=== PATIENT | male | born 1940 | race Caucasian/White ===

== ENCOUNTER 2016-10-21 15:03 | Emergency (ER) | payer MEDICARE, BC ==
[~2016-10-21] VITALS: Ht 167.6 cm; Wt 90.7 kg
[~2016-10-21 15:03] MED LIST: ALLO300T2 PO; AMLO5TAB2 PO; ASPI-612 PO; ATOR40TA PO; Acetaminophen PO; CALC0.253 PO; CARV3.122 PO; CHOL100043 PO; CLON0.1T PO; METF500T4 PO; OMEG500C3 PO; PANT40TA2 PO; PANT40TA4 PO
[2016-10-21] MEDS ORDERED: NITR0.4T SL (15:24)
[2016-10-21 15:48] LABS: *BILIRUBIN,URIN NEGATIVE (NEGATIVE); *BLOOD, URINE Trace-intact (NEGATIVE); *CLARITY,URINE SLIGHTLY CLOUDY (CLEAR); *COLOR,URINE YELLOW (YELLOW); *KETONES,URINE NEGATIVE (NEGATIVE); *PROTEIN,URINE NEGATIVE (NEGATIVE); *UROBILINOGEN,URINE 0.2 E.U./dl (NORMAL); LEUKOCYTE ESTERASE ,URINE 3+ (NEGATIVE); NITRITE, URINE NEGATIVE (NEGATIVE); PH,URINE 7.5 (5.0-8.0); UGLUCOSE NEGATIVE (NEGATIVE)
[2016-10-21 15:53] LABS: RBC,URINE 0-3 /HPF (0-3)
[2016-10-21 15:54] LABS: BACTERIA,URINE FEW /HPF (NONE SEEN); SQUAMOUS EPITHELIAL CELL,UR FEW /HPF (NONE SEEN); WBC,URINE 50-80 /HPF (0-3)
[2016-10-21] MEDS ORDERED: ACETAMINOPHEN 325 MG TABLET PO ONE (16:30)
[2016-10-21] MEDS ORDERED: IBUPROFEN 200 MG TABLET PO ONE (16:30)
--- NOTE | 2016-10-21 16:32 | NUR ---
Patient discharged to home in stable conditon. er handed the d/c paper work to the pt and . pt walks in steady gait accompanied by .
[2016-10-21] MEDS ORDERED: ACETAMINOPHEN ES 500 MG TABLET ONE (16:39)
[2016-10-21] MEDS ORDERED: IBUPROFEN 600 MG TABLET ONE (16:40)
== END 2016-10-21 16:32 | disposition home or self-care (01) ==
LOC: ER 15:03
DX: N39.0 Urinary tract infection, site not specified (principal); I25.10 Atherosclerotic heart disease of native coronary artery without angina pectoris; I10 Essential (primary) hypertension; E11.9 Type 2 diabetes mellitus without complications; M10.9 Gout, unspecified; E78.5 Hyperlipidemia, unspecified; C64.9 Malignant neoplasm of unspecified kidney, except renal pelvis; Z79.82 Long term (current) use of aspirin; Z88.2 Allergy status to sulfonamides; Z95.5 Presence of coronary angioplasty implant and graft
CPT/HCPCS: 81001; 87086; 99284; A4663; 87077

== ENCOUNTER 2017-11-21 21:50 | Emergency (ER) | payer MEDICARE, BC, MEDICAID ==
[~2017-11-21] VITALS: Ht 167.6 cm; Wt 90.7 kg
[~2017-11-21 21:50] MED LIST changes: -CALC0.253 PO; -METF500T4 PO; +METF500T6 PO; +NITR0.4T SL; -PANT40TA2 PO
[2017-11-21] MEDS ORDERED: hydrALAZINE HCL 20 MG/1 ML VIAL IV ONE (22:15)
[2017-11-21] MEDS ORDERED: NITROGLYCERIN 0.4 MG/TAB BOTTLE SL ONE ×2 (22:15)
--- NOTE | 2017-11-21 22:15 | NUR ---
Xray at bedside
[2017-11-21 22:19] LABS: BASOPHILS # (AUTO) 0.1 K/uL (0.0-8.0); BASOPHILS % (AUTO) 0.8 % (0.0-2.0); EOSINOPHILS # (AUTO) 0.2 K/uL (0.0-0.7); EOSINOPHILS % (AUTO) 2.7 % (0.0-7.0); HEMATOCRIT 37.1 % (36.7-47.1); HEMOGLOBIN 12.5 g/dL (12.5-16.3); LYMPHOCYTES # (AUTO) 1.9 K/uL (20.0-40.0); LYMPHOCYTES % (AUTO) 25.5 % (20.5-51.5); MEAN CORPUSCULAR HEMOGLOBIN 31.1 uug (23.8-33.4); MEAN CORPUSCULAR HGB CONC 34 g/dL (32.5-36.3); MEAN CORPUSCULAR VOLUME 92.6 fL (73.0-96.2); MONOCYTES # (AUTO) 0.7 K/uL (2.0-10.0); MONOCYTES % (AUTO) 9.8 % (0.0-11.0); NEUTROPHILS # (AUTO) 4.5 K/uL (1.8-8.9); NEUTROPHILS % (AUTO) 61.2 % (38.5-71.5); PLATELET COUNT (AUTO) 219 K/uL (152-348); WHITE BLOOD COUNT (AUTO) 7.4 K/uL (3.6-10.2)
[2017-11-21] MEDS ORDERED: hydrALAZINE HCL 10 MG TABLET ONE (22:25)
[2017-11-21 22:27] LABS: CARBON DIOXIDE 25 mmol/L (21-32); CHLORIDE 108 mmol/L (98-107); CREATININE 1.4 mg/dL (0.6-1.3); GLUCOSE 79 mg/dL (74-106); POTASSIUM 4.6 mmol/L (3.5-5.1); UREA NITROGEN, BLOOD 19 mg/dL (7-18)
[2017-11-21] MEDS ORDERED: hydrALAZINE HCL 10 MG TABLET PO ONE (22:30)
[2017-11-21 22:33] LABS: ALANINE AMINOTRANSFERASE 24 U/L (16-63); ALKALINE PHOSPHATASE 71 U/L (50-136); ASPARTATE AMINOTRANSFERASE 11 U/L (15-37); BILIRUBIN,DIRECT 0.1 mg/dL (0.0-0.2); BILIRUBIN,TOTAL 0.4 mg/dL (0.2-1.0); TOTAL PROTEIN, SERUM 6.4 g/dL (6.4-8.2)
--- NOTE | 2017-11-21 23:04 | NUR ---
Patient discharged to home in stable conditon. Written and verbal after care instructions given. Patient verbalizes understanding of instructions. Ambulated from ER with stable gait. All belongings with patient.
[2017-11-21 23:06] VITALS: BP 145/72
[2017-11-22] MEDS ORDERED: ASPI81TA31 PO (13:47)
[2017-11-22] MEDS ORDERED: OMEG500C PO (13:47)
[2017-11-22] MEDS ORDERED: CLON0.1T PO (13:47)
[2017-11-22] MEDS ORDERED: TAMS0.4C34 PO (13:47)
[2017-11-22] MEDS ORDERED: CARV3.122 PO (13:47)
[2017-11-22] MEDS ORDERED: LOSA50TA21 PO (13:47)
[2017-11-22] MEDS ORDERED: ATOR40TA PO (13:47)
[2017-11-22] MEDS ORDERED: CHOL500062 PO (13:47)
[2017-11-22] MEDS ORDERED: ALLO300T2 PO (19:10)
[2017-11-22] MEDS ORDERED: METF-494 PO (19:12)
[2017-11-26] MEDS ORDERED: TAMS-3 PO (13:07)
[2017-11-26] MEDS ORDERED: HYDR50TA68 PO (13:07)
[2017-11-26] MEDS ORDERED: LOSA50TA3 PO (13:07)
== END 2017-11-21 23:07 | disposition home or self-care (01) ==
LOC: ER 21:51
DX: I11.9 Hypertensive heart disease without heart failure (principal); I25.10 Atherosclerotic heart disease of native coronary artery without angina pectoris; E11.9 Type 2 diabetes mellitus without complications; E78.5 Hyperlipidemia, unspecified; Z88.2 Allergy status to sulfonamides; Z79.84 Long term (current) use of oral hypoglycemic drugs; Z79.82 Long term (current) use of aspirin
CPT/HCPCS: 36415; 71045; 80048; 80076; 84484; 85025; 93005; 99285; A4663; 70030-TC

== ENCOUNTER 2017-11-22 13:33 | Inpatient (IN) | payer MEDICARE, BC, MEDICAID ==
[~2017-11-22] VITALS: Ht 167.6 cm; Wt 90.9 kg
[2017-11-22] MEDS ORDERED: OMEG500C PO (13:47)
[2017-11-22] MEDS ORDERED: CLON0.1T PO (13:47)
[2017-11-22] MEDS ORDERED: LOSA50TA21 PO (13:47)
[2017-11-22] MEDS ORDERED: CARV3.122 PO (13:47)
[2017-11-22] MEDS ORDERED: CHOL500062 PO (13:47)
[2017-11-22] MEDS ORDERED: ASPI81TA31 PO (13:47)
[2017-11-22] MEDS ORDERED: TAMS0.4C34 PO (13:47)
[2017-11-22] MEDS ORDERED: ATOR40TA PO (13:47)
[2017-11-22] MEDS ORDERED: LABETALOL HCL 100 MG/20 ML VIAL ONE (14:14)
[2017-11-22] MEDS ORDERED: ACETAMINOPHEN ES 500 MG TABLET ONE (14:14)
[2017-11-22 14:15] LABS: BASOPHILS # (AUTO) 0.1 K/uL (0.0-8.0); BASOPHILS % (AUTO) 0.7 % (0.0-2.0); EOSINOPHILS # (AUTO) 0.2 K/uL (0.0-0.7); EOSINOPHILS % (AUTO) 2.4 % (0.0-7.0); HEMATOCRIT 37.2 % (36.7-47.1); HEMOGLOBIN 12.3 g/dL (12.5-16.3); LYMPHOCYTES # (AUTO) 1.7 K/uL (20.0-40.0); LYMPHOCYTES % (AUTO) 23.3 % (20.5-51.5); MEAN CORPUSCULAR HEMOGLOBIN 30.7 uug (23.8-33.4); MEAN CORPUSCULAR HGB CONC 33 g/dL (32.5-36.3); MEAN CORPUSCULAR VOLUME 92.8 fL (73.0-96.2); MONOCYTES # (AUTO) 0.5 K/uL (2.0-10.0); MONOCYTES % (AUTO) 7.6 % (0.0-11.0); NEUTROPHILS # (AUTO) 4.7 K/uL (1.8-8.9); PLATELET COUNT (AUTO) 207 K/uL (152-348); RED BLOOD CELL COUNT(AUTO) 4.01 MIL/uL (4.06-5.63); WHITE BLOOD COUNT (AUTO) 7.2 K/uL (3.6-10.2)
[2017-11-22] MEDS ORDERED: ACETAMINOPHEN ES 500 MG TABLET PO ONE (14:15)
[2017-11-22] MEDS ORDERED: LABETALOL HCL 100 MG/20 ML VIAL IV ONE (14:15)
[2017-11-22 14:20] LABS: CARBON DIOXIDE 24 mmol/L (21-32); CHLORIDE 106 mmol/L (98-107); CREATININE 1.3 mg/dL (0.6-1.3); GLUCOSE 131 mg/dL (74-106); POTASSIUM 4.3 mmol/L (3.5-5.1); UREA NITROGEN, BLOOD 19 mg/dL (7-18)
[2017-11-22 14:26] LABS: ALANINE AMINOTRANSFERASE 26 U/L (16-63); ALKALINE PHOSPHATASE 71 U/L (50-136); ASPARTATE AMINOTRANSFERASE 13 U/L (15-37); BILIRUBIN,DIRECT 0.1 mg/dL (0.0-0.2); BILIRUBIN,TOTAL 0.4 mg/dL (0.2-1.0); TOTAL PROTEIN, SERUM 6.3 g/dL (6.4-8.2)
--- NOTE | 2017-11-22 14:56 | NUR ---
Pt resting in gurney with eyes closed and no s/s of distress noted, disposition pending.
--- NOTE | 2017-11-22 17:10 | NUR ---
Per she spoke with and pt to be admitted to tele. SBAR report given to SOMAN Sanchez via telephone. Pt sitting on gurney and eating dinner at this time with NAD noted.
--- NOTE | 2017-11-22 17:38 | NUR ---
Pt trans to tele, NAD noted.
--- NOTE | 2017-11-22 17:45 | NUR ---
Patient transferred onto telemetry/med-surg floor at this time in stable condition, no s/so distress. Elevated BP 166/84. MD notified and has seen the patient. MD will place orders as soon as he can. ID-band placed, telemetry monitoring placed - Sinus Rhythm at this time. no signs of chest pain verbalized by patient. no light-headedness. IV-access patent, flushing well. belongings checklist checked and signed. patient a/ox4, ambulatory without assistance. full admission completed. no complaints of pain verbalized by patient. will monitor until end of shift.
[2017-11-22 18:00] VITALS: BP 166/84
[2017-11-22] MEDS ORDERED: ALLO300T2 PO (19:10)
[2017-11-22] MEDS ORDERED: METF-494 PO (19:12)
[2017-11-22] MEDS ORDERED: Medication Not On Formulary EA ([Acetaminophen] 650 MG) PO PRN (19:15)
[2017-11-22] MEDS ORDERED: ZOLPIDEM 5 MG TABLET PO PRN (19:30)
[2017-11-22] MEDS ORDERED: MAGNESIUM HYDROXIDE 30 ML LIQUID UDC PO PRN (19:30)
[2017-11-22] MEDS ORDERED: ONDANSETRON 4 MG/2 ML VIAL IV PRN (19:30)
[2017-11-22] MEDS ORDERED: ACETAMINOPHEN 325 MG TABLET PO PRN (19:45)
[2017-11-22 20:00] VITALS: BP 126/78
--- NOTE | 2017-11-22 20:00 | NUR ---
Received pt sitting up in bed with family at bedside. Pt c/o headache at this time, no s/s of distress noted BP at 126/78. Tele sinus erin with HR at 55. Safe environment implemented. Pt made aware of plan of care. Call light within reach.
[2017-11-22] MEDS: DOCUSATE SODIUM 100 MG CAPSULE PO SCH (20:29)
[2017-11-22] MEDS: ATORVASTATIN 40 MG TABLET PO SCH (20:29)
[2017-11-22] MEDS: ACETAMINOPHEN 325 MG TABLET PO PRN (20:30)
[2017-11-22] MEDS: TAMSULOSIN HCL 0.4 MG CAP.SR.24H PO SCH (20:30)
[2017-11-22] MEDS: hydrALAZINE HCL 25 MG TABLET PO PRN (21:18)
--- NOTE | 2017-11-22 21:30 | NUR ---
BP at 186/93 at this time. No s/s of acute distress at this time. Relaxation techniques provided to client. Hydralazine 25 mg PO PRN administered. Will continue to monitor closely.
[2017-11-22 22:48] VITALS: BP 136/71
--- NOTE | 2017-11-22 23:00 | NUR ---
BP controlled at this time 136/71. Tele monitor sinus erin with HR in the 50's. Pt remains easily arousable via verbal and tactile stimuli. Will continue to monitor closely.
[2017-11-23] VITALS (8 sets, daily range): BP systolic 135–178; BP diastolic 76–94
--- NOTE | 2017-11-23 05:43 | NUR ---
All needs attended to. BP remains controlled at this time 135/76. Pt asymptomatic and denies pain at this time. Safe environment implemented. Call light within reach.
[2017-11-23] MEDS: PANTOPRAZOLE SODIUM 40 MG TABLET.DR PO SCH (06:01)
[2017-11-23 06:38] LABS: ALANINE AMINOTRANSFERASE 21 U/L (16-63); ALKALINE PHOSPHATASE 72 U/L (50-136); ASPARTATE AMINOTRANSFERASE 15 U/L (15-37); BILIRUBIN,TOTAL 0.3 mg/dL (0.2-1.0); CARBON DIOXIDE 25 mmol/L (21-32); CHLORIDE 108 mmol/L (98-107); CHOLESTEROL 126 mg/dL (<200); CREATININE 1.4 mg/dL (0.6-1.3); GLUCOSE 153 mg/dL (74-106); HDL CHOLESTEROL 41 mg/dL (40-60); MAGNESIUM 1.8 mg/dL (1.8-2.4); PHOSPHOROUS 2.9 mg/dL (2.5-4.9); POTASSIUM 3.9 mmol/L (3.5-5.1); TRIGLYCERIDES 67 MG/DL (30-150); UREA NITROGEN, BLOOD 18 mg/dL (7-18); URIC ACID 3.7 mg/dL (3.5-7.2)
[2017-11-23 06:40] LABS: THYROID STIMULATING HORMONE 3.436 mIU/mL (0.358-3.740)
[2017-11-23 06:46] LABS: BASOPHILS % (AUTO) 0.5 % (0.0-2.0); EOSINOPHILS # (AUTO) 0.1 K/uL (0.0-0.7); EOSINOPHILS % (AUTO) 2.1 % (0.0-7.0); HEMATOCRIT 36.1 % (36.7-47.1); LYMPHOCYTES # (AUTO) 1.6 K/uL (20.0-40.0); LYMPHOCYTES % (AUTO) 21.9 % (20.5-51.5); MEAN CORPUSCULAR HEMOGLOBIN 31.1 uug (23.8-33.4); MEAN CORPUSCULAR HGB CONC 33 g/dL (32.5-36.3); MEAN CORPUSCULAR VOLUME 93.7 fL (73.0-96.2); MONOCYTES # (AUTO) 0.6 K/uL (2.0-10.0); MONOCYTES % (AUTO) 8.5 % (0.0-11.0); NEUTROPHILS # (AUTO) 4.8 K/uL (1.8-8.9); PLATELET COUNT (AUTO) 202 K/uL (152-348); RED BLOOD CELL COUNT(AUTO) 3.86 MIL/uL (4.06-5.63); WHITE BLOOD COUNT (AUTO) 7.2 K/uL (3.6-10.2)
--- NOTE | 2017-11-23 07:32 | NUR ---
patient resting comfortably in bed at this time. no s/s of distress. stable condition. blood pressure management will be provided. a/ox4. ambulatory. will continue to monitor throughout shift.
--- NOTE | 2017-11-23 07:33 | NUR ---
patient resting comfortably in bed at this time. significant other at bedside. stable condition, no s/s of distress. patient performed peritoneal dialysis twice during the night custodian. first time out 2L. will monitor bp throughout shift. possible d/c today. will monitor pt throughout shift. Addendum: 11/23/17 at 0735 by AMELIA KOCH RN *INCORRECT PATIENT* - please disregard.
[2017-11-23] MEDS: CHOLECALCIFEROL 1,000 UNIT TABLET PO SCH (08:15)
[2017-11-23] MEDS: ASPIRIN 81 MG TAB.CHEW PO SCH (08:15)
[2017-11-23] MEDS: OMEGA-3 FATTY ACIDS/FISH OIL CAPSULE PO SCH (08:16)
[2017-11-23] MEDS: METFORMIN HCL 500 MG TABLET PO SCH ×2 (08:16→18:02)
[2017-11-23] MEDS: hydrALAZINE HCL 25 MG TABLET PO PRN (08:20)
[2017-11-23] MEDS: CARVEDILOL 3.125 MG TABLET PO SCH ×2 (08:24→16:44)
--- NOTE | 2017-11-23 08:24 | NUR ---
non-administration - of carvedilol 3.125 mg tablets (2 tablets) - decreased heart rate = 58
[2017-11-23] MEDS ORDERED: Medication Not On Formulary EA (Omega-3 Fatty Acids (Fish Oil) 500 MG) PO SCH (09:00)
[2017-11-23] MEDS ORDERED: LOSARTAN POTASSIUM 50 MG TABLET PO SCH (09:00)
[2017-11-23] MEDS ORDERED: ALLOPURINOL 300 MG TABLET PO SCH (09:00)
[2017-11-23] MEDS ORDERED: Medication Not On Formulary EA (Cholecalciferol (Vitamin D3) (Vitamin D3) 5,000 UNIT) PO SCH (09:00)
[2017-11-23] MEDS ORDERED: hydrALAZINE HCL 50 MG TABLET PO SCH (09:30)
[2017-11-23] MEDS: ACETAMINOPHEN 325 MG TABLET PO PRN ×2 (11:44→21:25)
[2017-11-23] MEDS ORDERED: NITROGLYCERIN OINT 1 GM PACKET TP PRN (12:30)
[2017-11-23 16:16] LABS: *BILIRUBIN,URIN NEGATIVE (NEGATIVE); *BLOOD, URINE NEGATIVE (NEGATIVE); *CLARITY,URINE CLEAR (CLEAR); *COLOR,URINE YELLOW (YELLOW); *KETONES,URINE NEGATIVE (NEGATIVE); *PROTEIN,URINE TRACE (NEGATIVE); *UROBILINOGEN,URINE 0.2 E.U./dl (NORMAL); LEUKOCYTE ESTERASE ,URINE NEGATIVE (NEGATIVE); NITRITE, URINE NEGATIVE (NEGATIVE); UGLUCOSE NEGATIVE (NEGATIVE)
[2017-11-23 16:22] LABS: *CREATININE,URINE 98.2 mg/dL (30-125); *URINE TOTAL PROTEIN RANDOM 21.4 mg/dL (<150/24HR)
[2017-11-23 16:44] LABS: WBC,URINE 0-3 /HPF (0-3)
[2017-11-23 16:45] LABS: MUCUS,URINE MODERATE /LPF (0-FEW); SQUAMOUS EPITHELIAL CELL,UR FEW /HPF (NONE SEEN)
[2017-11-23] MEDS: ATORVASTATIN 40 MG TABLET PO SCH (21:30)
[2017-11-23] MEDS: DOCUSATE SODIUM 100 MG CAPSULE PO SCH (21:30)
[2017-11-23] MEDS: TAMSULOSIN HCL 0.4 MG CAP.SR.24H PO SCH (21:30)
[2017-11-23] MEDS: hydrALAZINE HCL 50 MG TABLET PO SCH (21:31)
[2017-11-23] MEDS: LOSARTAN POTASSIUM 50 MG TABLET PO SCH (21:33)
[2017-11-24] VITALS (7 sets, daily range): BP systolic 117–189; BP diastolic 64–109
[2017-11-24] MEDS: CLONIDINE HCL 0.1 MG TABLET PO PRN ×2 (00:14→17:13)
[2017-11-24] MEDS: PANTOPRAZOLE SODIUM 40 MG TABLET.DR PO SCH (06:48)
[2017-11-24] MEDS: hydrALAZINE HCL 50 MG TABLET PO SCH ×3 (06:49→22:00)
[2017-11-24 06:50] LABS: BASOPHILS % (AUTO) 0.5 % (0.0-2.0); EOSINOPHILS # (AUTO) 0.2 K/uL (0.0-0.7); EOSINOPHILS % (AUTO) 2.2 % (0.0-7.0); HEMOGLOBIN 12.5 g/dL (12.5-16.3); LYMPHOCYTES # (AUTO) 1.6 K/uL (20.0-40.0); LYMPHOCYTES % (AUTO) 20.7 % (20.5-51.5); MEAN CORPUSCULAR HEMOGLOBIN 31.3 uug (23.8-33.4); MEAN CORPUSCULAR HGB CONC 34 g/dL (32.5-36.3); MEAN CORPUSCULAR VOLUME 92.6 fL (73.0-96.2); MONOCYTES # (AUTO) 0.7 K/uL (2.0-10.0); MONOCYTES % (AUTO) 8.5 % (0.0-11.0); NEUTROPHILS # (AUTO) 5.4 K/uL (1.8-8.9); NEUTROPHILS % (AUTO) 68.1 % (38.5-71.5); PLATELET COUNT (AUTO) 207 K/uL (152-348); RED BLOOD CELL COUNT(AUTO) 3.99 MIL/uL (4.06-5.63); WHITE BLOOD COUNT (AUTO) 7.9 K/uL (3.6-10.2)
[2017-11-24 07:08] LABS: ALANINE AMINOTRANSFERASE 23 U/L (16-63); ALKALINE PHOSPHATASE 63 U/L (50-136); ASPARTATE AMINOTRANSFERASE 13 U/L (15-37); BILIRUBIN,TOTAL 0.6 mg/dL (0.2-1.0); CARBON DIOXIDE 23 mmol/L (21-32); CHLORIDE 109 mmol/L (98-107); CREATINE KINASE, TOTAL 47 U/L (39-308); CREATININE 1.3 mg/dL (0.6-1.3); GLUCOSE 104 mg/dL (74-106); MAGNESIUM 1.6 mg/dL (1.8-2.4); PHOSPHOROUS 2.7 mg/dL (2.5-4.9); UREA NITROGEN, BLOOD 18 mg/dL (7-18)
--- NOTE | 2017-11-24 07:15 | NUR ---
Received patient in bed, awake, alert and oriented x4, in no acute distress. denies chest pain or SOB. Denies headache at this time. IV site on LAC intact. NSR on monitor.
[2017-11-24] MEDS: METFORMIN HCL 500 MG TABLET PO SCH ×2 (08:14→17:44)
[2017-11-24] MEDS: LOSARTAN POTASSIUM 50 MG TABLET PO SCH ×2 (08:14→21:00)
[2017-11-24] MEDS: ASPIRIN 81 MG TAB.CHEW PO SCH (08:14)
[2017-11-24] MEDS: OMEGA-3 FATTY ACIDS/FISH OIL CAPSULE PO SCH (08:14)
[2017-11-24] MEDS: ALLOPURINOL 100 MG TABLET PO SCH (08:14)
[2017-11-24] MEDS: CARVEDILOL 6.25 MG TABLET PO SCH ×2 (08:14→15:53)
[2017-11-24] MEDS: CHOLECALCIFEROL 1,000 UNIT TABLET PO SCH (08:15)
[2017-11-24] MEDS ORDERED: CARVEDILOL 3.125 MG TABLET PO SCH (09:00)
[2017-11-24] MEDS: MAGNESIUM SULFATE/D5W 100 ML IV SCH ×2 (12:54→14:03)
--- NOTE | 2017-11-24 15:45 | NUR ---
Dr. Broderick here to see patient, current BP elevated at 166/82 FL of 75. Patient c/o mild headache. NSR on monitor. Denies chest pain or SOB. Per MD, give Clonidine 0.1 mg and Coreg 6.25 mg (that are due for 1700) now then recheck BP in an hour, noted and carried out.
[2017-11-24] MEDS: CLONIDINE HCL 0.1 MG TABLET PO SCH (15:53)
[2017-11-24] MEDS: ACETAMINOPHEN 325 MG TABLET PO PRN (16:59)
--- NOTE | 2017-11-24 17:00 | NUR ---
BP rechecked at this time, noted 194/102 on right arm, 188/106 on left arm, supine position. Patient c/o severe headache at this time. Denies chest pain or SOB. NSR on monitor, HR 75. Call placed to Dr. Broderick, received order to give extra dose of Clonidine 0.1 mg PO and notify Lock Master, noted and carried out. Tylenol 650 mg PO was also given for headache.
--- NOTE | 2017-11-24 17:15 | NUR ---
Call placed to Dr. Lynch (fraud manager) thru [facility] service line. Dr. Nitin Farooq trailers and motor homes salesperson, received new orders to start Lisinopril 20 mg PO BID and Nitropaste 2inch BID, start dose now, noted and carried out. Patient made aware and agreed with POC.
[2017-11-24] MEDS ORDERED: LISINOPRIL 20 MG TABLET PO SCH (17:30)
[2017-11-24] MEDS: NITROGLYCERIN OINT 1 GM PACKET TP SCH (17:44)
--- NOTE | 2017-11-24 18:41 | NUR ---
BP rechecked at this time, noted at 143/83 MD of 68, NSR on monitor. Patient verbalized relief of headache. Will continue to monitor
--- NOTE | 2017-11-24 21:00 | NUR ---
Nurse Note: Pt resting comfortably in bed. Respirations even and unlabored. All due medications administered as ordered. Pt blood pressure seems to have stabilized since the previous shift.Losartan held. Pt verbalized that nitropaste was causing headache. made aware. No new orders noted. Pt now resting comfortably. Bed in low position. Call light in reach. Continue to monitor.
[2017-11-24] MEDS: ATORVASTATIN 40 MG TABLET PO SCH (21:12)
[2017-11-24] MEDS: TAMSULOSIN HCL 0.4 MG CAP.SR.24H PO SCH (21:12)
[2017-11-24] MEDS: DOCUSATE SODIUM 100 MG CAPSULE PO SCH (21:12)
[2017-11-24] MEDS ORDERED: MORPHINE SULFATE 2 MG/1 ML DISP.SYRIN IV PRN (21:15)
[2017-11-25] VITALS (7 sets, daily range): BP systolic 98–142; BP diastolic 58–80
--- NOTE | 2017-11-25 01:00 | NUR ---
Nursing note: Pt resting comfortably in bed. No apparent distress at this time. Blood pressure seems to have stabilized at this point. Bed in low and locked position. Call light in reach. Will continue to monitor.
--- NOTE | 2017-11-25 04:08 | NUR ---
Nurse Note: Pt resting comfortably in bed. No acute distress. Blood pressure currently 98/61 HR 59. No complaints of pain at this time. Bed in low and locked position. Call light in reach at all times. Will continue to monitor.
[2017-11-25] MEDS: hydrALAZINE HCL 50 MG TABLET PO SCH ×3 (05:25→22:18)
[2017-11-25] MEDS: PANTOPRAZOLE SODIUM 40 MG TABLET.DR PO SCH (05:36)
[2017-11-25] MEDS: ACETAMINOPHEN 325 MG TABLET PO PRN ×2 (05:37→12:29)
[2017-11-25] MEDS: METFORMIN HCL 500 MG TABLET PO SCH ×2 (07:54→17:04)
[2017-11-25] MEDS: CARVEDILOL 6.25 MG TABLET PO SCH ×2 (07:57→18:12)
[2017-11-25] MEDS: CHOLECALCIFEROL 1,000 UNIT TABLET PO SCH (08:00)
[2017-11-25] MEDS: OMEGA-3 FATTY ACIDS/FISH OIL CAPSULE PO SCH (08:00)
[2017-11-25] MEDS: ALLOPURINOL 100 MG TABLET PO SCH (08:00)
[2017-11-25] MEDS: ASPIRIN 81 MG TAB.CHEW PO SCH (08:00)
[2017-11-25] MEDS: NITROGLYCERIN OINT 1 GM PACKET TP SCH ×2 (10:00→10:02)
--- NOTE | 2017-11-25 10:00 | NUR ---
PATIENT REFUSED NITRO BID TOPICAL. PT STATED HE GETS HEADACHES. PATIENT TEACHING/EDUCATION PROVIDED, PAIN MEDICATION PRN BUT PATIENT STILL REFUSED. WILL CONTINUE TO MONITOR VS/BP/HR.
[2017-11-25] MEDS: LOSARTAN POTASSIUM 50 MG TABLET PO SCH ×2 (10:01→20:19)
[2017-11-25] MEDS: CLONIDINE HCL 0.1 MG TABLET PO SCH ×2 (10:01→17:05)
--- NOTE | 2017-11-25 18:00 | NUR ---
PATIENT RESTING IN BED, ALERT, IN NO DISTRESS. VS AND BP/HR MONITORED THROUGHOUT THE SHIFT. PATIENT NO C/O OF CHEST PAIN, SOB, DIZZINESS. SAFETY MEASURES IN PLACE
--- NOTE | 2017-11-25 19:20 | NUR ---
Received patient lying in bed. AAOX4. In no acute distress. Denies any pain or SOB. IV site on left FA intact and patent. at bedside. Safety measure initiated and call mcmahon within reach.
[2017-11-25] MEDS: DOCUSATE SODIUM 100 MG CAPSULE PO SCH (20:18)
[2017-11-25] MEDS: TAMSULOSIN HCL 0.4 MG CAP.SR.24H PO SCH (20:19)
[2017-11-25] MEDS: ATORVASTATIN 40 MG TABLET PO SCH (20:19)
[2017-11-26 04:00] VITALS: BP 115/80
[2017-11-26] MEDS: PANTOPRAZOLE SODIUM 40 MG TABLET.DR PO SCH (06:09)
[2017-11-26] MEDS: hydrALAZINE HCL 50 MG TABLET PO SCH ×2 (06:10→14:00)
--- NOTE | 2017-11-26 06:17 | NUR ---
AAOX4. In no acute distress. VS WNL. Denies any pain or SOB. IV site on left FA intact and patent. Safety measure maintained and call mcmahon within reach.
--- NOTE | 2017-11-26 07:25 | NUR ---
RECEIVED PATIENT IN BED AWAKE ALERT AND ORIENTED DENIES PAIN OR DISCOMFORTS AT THIS TIME ALERT ORIENTED ALL PERSONAL BELONGINGS PLACE WITHIN EASY REACH AT THIS TIME WILL CONTINUE TO OBSERVE
[2017-11-26] MEDS: OMEGA-3 FATTY ACIDS/FISH OIL CAPSULE PO SCH (08:43)
[2017-11-26] MEDS: METFORMIN HCL 500 MG TABLET PO SCH (08:43)
[2017-11-26] MEDS: ASPIRIN 81 MG TAB.CHEW PO SCH (08:44)
[2017-11-26] MEDS: ALLOPURINOL 100 MG TABLET PO SCH (08:44)
--- NOTE | 2017-11-26 08:45 | NUR ---
BLOOD PRESSURE CHECKED AND ITS 160/91 MEDICATIONS PREPARED AND PATIENT ACCEPTED THE MEDICATIONS FROM ME BUT THEN DECIDED LAST MINUTE NOT TO TAKE THEM STATED THAT THE INSTRUCTIONS ON HER HOME BLOOD PRESSURE MACHINE IS TO TAKE BLOOD PRESSURE HALF AN HOUR AFTER HE EATS SO SATED WILL WAIT HALF AN HOUR BEFORE TAKING ALL HIS MEDICATIONS
[2017-11-26] MEDS: LOSARTAN POTASSIUM 50 MG TABLET PO SCH (08:46)
[2017-11-26] MEDS: CARVEDILOL 6.25 MG TABLET PO SCH (08:47)
[2017-11-26] MEDS: CLONIDINE HCL 0.1 MG TABLET PO SCH (08:47)
--- NOTE | 2017-11-26 09:20 | NUR ---
BLOOD PRESSURE RECHECKED AT THIS TIME AND ITS 171/84 SO PATIENT TOOK ALL HIS MEDICATIONS WILL CONTINUE TO OBSERVE.
[2017-11-26] MEDS: CHOLECALCIFEROL 1,000 UNIT TABLET PO SCH (09:42)
[2017-11-26] MEDS: ACETAMINOPHEN 325 MG TABLET PO PRN (11:33)
[2017-11-26 12:07] LABS: A/G RATIO 1.3 (0.7-1.7); ALBUMIN 3.3 g/dL (2.9-4.4); ALPHA-1-GLOBULIN 0.2 g/dL (0.0-0.4); ALPHA-2-GLOBULIN 0.7 g/dL (0.4-1.0); BETA GLOBULIN 0.9 g/dL (0.7-1.3); GAMMA GLOBULIN 0.6 g/dL (0.4-1.8); GLOBULIN, TOTAL 2.5 g/dL (2.2-3.9); M-SPIKE Not Observed g/dL (Not Observed)
[2017-11-26 12:11] VITALS: BP 125/80
--- NOTE | 2017-11-26 13:03 | NUR ---
PATIENT IS BEING PREPPED FOR DISCHARGE PER DR SADLER OFFERED TO MAKE A FOLLOW UP APPOINTMENT FOR HIM STATED HIS DOCTORS NAME IS DR JULIAN IN [place] BUT STATED WILL MAKE THE APPOINTMENT HIMSELF WHEN HE GETS HOME.
[2017-11-26] MEDS ORDERED: HYDR50TA68 PO (13:07)
[2017-11-26] MEDS ORDERED: TAMS-3 PO (13:07)
[2017-11-26] MEDS ORDERED: LOSA50TA3 PO (13:07)
--- NOTE | 2017-11-26 13:35 | NUR ---
DISCHARGE INSTRUCTIONS AND PRESCRIPTIONS GIVEN TO THE PATIENT AT THIS TIME PATIENT STATED THAT HIS DOCTOR IS DR REN IN [place] STATED THAT HE WILL CALL HIM WHEN HE GETS HOME STATED DOES NOT WANT TO TAKE HIS DUE BLOOD PRESSURE MEDICATIONS AT THIS TIME
--- NOTE | 2017-11-26 14:00 | NUR ---
PATIENT DISCHARGED PICKED UP BY HIS FATIMAH IN SATISFACTORY CONDITION WITH INSTRUCTIONS AND HE EXPRESSED UNDERSTANDING WITH ALL HIS PERSONAL BELONGINGS
[2017-11-27 15:07] LABS: CORTISOL AM 5.5 ug/dL (6.2-19.4)
[2017-11-29 06:06] LABS: RENIN 0.293 ng/mL/hr (0.167-5.380)
[2017-11-29 10:08] LABS: ALDOSTERONE 1.4 ng/dL (0.0-30.0)
== END 2017-11-26 14:00 | disposition home or self-care (01) | DRG 304 ==
LOC: ER 13:33 → TELE 17:31 → MED 11-25 15:00
PROVIDERS: ADMIT Internal Medicine; ATTEND Internal Medicine
DX: I16.0 Hypertensive urgency (principal); N17.0 Acute kidney failure with tubular necrosis; C64.2 Malignant neoplasm of left kidney, except renal pelvis; I13.10 Hypertensive heart and chronic kidney disease without heart failure, with stage 1 through stage 4 chronic kidney disease, or unspecified chronic kidney disease; I25.10 Atherosclerotic heart disease of native coronary artery without angina pectoris; Z95.5 Presence of coronary angioplasty implant and graft; I67.2 Cerebral atherosclerosis; I25.2 Old myocardial infarction; E78.5 Hyperlipidemia, unspecified; M10.9 Gout, unspecified; Z85.51 Personal history of malignant neoplasm of bladder; E11.22 Type 2 diabetes mellitus with diabetic chronic kidney disease; N18.9 Chronic kidney disease, unspecified; Z79.84 Long term (current) use of oral hypoglycemic drugs; Z88.2 Allergy status to sulfonamides; Z79.899 Other long term (current) drug therapy; Z79.82 Long term (current) use of aspirin; D50.9 Iron deficiency anemia, unspecified; R19.5 Other fecal abnormalities; R00.1 Bradycardia, unspecified; T50.905A Adverse effect of unspecified drugs, medicaments and biological substances, initial encounter; Y92.009 Unspecified place in unspecified non-institutional (private) residence as the place of occurrence of the external cause
CPT/HCPCS: 36415; 70030-TC; 70450; 76770; 82088; 82533; 83735; 83970; 84100; 84155; 84156; 84165; 84244; 84300; 84443; 84550; 85025; 85730; 93005; 93307; A4663; A9150; J3475; J3490; J7040; J8499

== ENCOUNTER 2017-11-27 23:45 | Emergency (ER) | payer MEDICARE, BC ==
[~2017-11-27] VITALS: Ht 167.6 cm; Wt 90.7 kg
[~2017-11-27 23:45] MED LIST changes: -AMLO5TAB2 PO; -ASPI-612 PO; +ASPI81TA31 PO; -CHOL100043 PO; +CHOL500062 PO; +HYDR50TA68 PO; +LOSA50TA3 PO; +METF-494 PO; -METF500T6 PO; -NITR0.4T SL; +OMEG500C PO; -OMEG500C3 PO; -PANT40TA4 PO; +TAMS-3 PO
[2017-11-28 00:30] VITALS: BP 148/88
[2017-11-28] MEDS ORDERED: LOSA50TA21 PO (02:17)
[2017-11-28] MEDS ORDERED: HYDR100T27 PO (02:17)
[2017-11-28] MEDS ORDERED: ALLOPURINOL 300 MG TABLET PO SCH (09:00)
[2017-11-28] MEDS ORDERED: LOSARTAN POTASSIUM 50 MG TABLET PO SCH (09:00)
[2017-11-28] MEDS ORDERED: ASPIRIN 81 MG TAB.CHEW PO SCH (09:00)
[2017-11-28] MEDS ORDERED: CARVEDILOL 3.125 MG TABLET PO SCH (09:00)
[2017-11-28] MEDS ORDERED: Medication Not On Formulary EA (Omega-3 Fatty Acids (Fish Oil) 1,000 MG) PO SCH (09:00)
[2017-11-28] MEDS ORDERED: CLONIDINE HCL 0.1 MG TABLET PO SCH (09:00)
[2017-11-28] MEDS ORDERED: TAMSULOSIN HCL 0.4 MG CAP.SR.24H PO SCH (21:00)
[2017-11-28] MEDS ORDERED: ATORVASTATIN 40 MG TABLET PO SCH (21:00)
== END 2017-11-28 10:08 | disposition home or self-care (01) ==
LOC: ER 23:48
DX: I10 Essential (primary) hypertension (principal); I25.10 Atherosclerotic heart disease of native coronary artery without angina pectoris; I25.2 Old myocardial infarction; E11.9 Type 2 diabetes mellitus without complications; E78.5 Hyperlipidemia, unspecified; Z95.5 Presence of coronary angioplasty implant and graft; Z88.2 Allergy status to sulfonamides; Z79.82 Long term (current) use of aspirin
CPT/HCPCS: 99281; A4663

== ENCOUNTER 2017-11-28 02:04 | Inpatient (IN) | payer MEDICARE, BC ==
[~2017-11-28] VITALS: Ht 170.2 cm; Wt 79.9 kg
[2017-11-28] MEDS ORDERED: HYDR100T27 PO (02:17)
[2017-11-28] MEDS ORDERED: LOSA50TA21 PO (02:17)
[2017-11-28] MEDS ORDERED: CLONIDINE HCL 0.1 MG TABLET ONE (02:26)
[2017-11-28 03:04] LABS: BASOPHILS % (AUTO) 0.4 % (0.0-2.0); EOSINOPHILS # (AUTO) 0.2 K/uL (0.0-0.7); EOSINOPHILS % (AUTO) 1.9 % (0.0-7.0); HEMATOCRIT 37.6 % (36.7-47.1); HEMOGLOBIN 12.6 g/dL (12.5-16.3); LYMPHOCYTES # (AUTO) 1.5 K/uL (20.0-40.0); LYMPHOCYTES % (AUTO) 17.1 % (20.5-51.5); MEAN CORPUSCULAR HEMOGLOBIN 31.1 uug (23.8-33.4); MEAN CORPUSCULAR HGB CONC 34 g/dL (32.5-36.3); MEAN CORPUSCULAR VOLUME 92.5 fL (73.0-96.2); MONOCYTES # (AUTO) 0.7 K/uL (2.0-10.0); MONOCYTES % (AUTO) 8.4 % (0.0-11.0); NEUTROPHILS # (AUTO) 6.4 K/uL (1.8-8.9); NEUTROPHILS % (AUTO) 72.2 % (38.5-71.5); PLATELET COUNT (AUTO) 196 K/uL (152-348); RED BLOOD CELL COUNT(AUTO) 4.06 MIL/uL (4.06-5.63); WHITE BLOOD COUNT (AUTO) 8.9 K/uL (3.6-10.2)
[2017-11-28] MEDS ORDERED: CLONIDINE HCL 0.1 MG TABLET PO ONE (03:15)
[2017-11-28 03:25] LABS: CARBON DIOXIDE 20 mmol/L (21-32); CHLORIDE 106 mmol/L (98-107); CREATININE 1.4 mg/dL (0.6-1.3); GLUCOSE 125 mg/dL (74-106); POTASSIUM 4.3 mmol/L (3.5-5.1); UREA NITROGEN, BLOOD 24 mg/dL (7-18)
[2017-11-28 03:38] LABS: ALANINE AMINOTRANSFERASE 27 U/L (16-63); ALKALINE PHOSPHATASE 75 U/L (50-136); ASPARTATE AMINOTRANSFERASE 20 U/L (15-37); BILIRUBIN,DIRECT 0.1 mg/dL (0.0-0.2); BILIRUBIN,TOTAL 0.6 mg/dL (0.2-1.0); TOTAL PROTEIN, SERUM 6.5 g/dL (6.4-8.2)
[2017-11-28] MEDS ORDERED: HYDROCODONE/APAP 5-325MG TABLET PO PRN (04:45)
[2017-11-28] MEDS ORDERED: ONDANSETRON 4 MG/2 ML VIAL IV PRN (04:45)
[2017-11-28] MEDS ORDERED: Z GUARD REMEDY PASTE 57 GM TUBE TOP PRN (04:45)
[2017-11-28] MEDS ORDERED: ACETAMINOPHEN 325 MG TABLET PO PRN (04:45)
[2017-11-28] MEDS ORDERED: ZOLPIDEM 5 MG TABLET PO PRN (04:45)
[2017-11-28] MEDS ORDERED: MAGNESIUM HYDROXIDE 30 ML LIQUID UDC PO PRN (04:45)
[2017-11-28] MEDS ORDERED: MORPHINE SULFATE 2 MG/1 ML DISP.SYRIN IV PRN (04:45)
[2017-11-28] MEDS ORDERED: NITROGLYCERIN 0.4 MG/TAB BOTTLE SL PRN ×2 (04:45→07:02)
[2017-11-28 05:31] VITALS: BP 147/81
[2017-11-28] MEDS ORDERED: PANTOPRAZOLE SODIUM 40 MG TABLET.DR PO SCH (07:00)
[2017-11-28 08:22] VITALS: BP 138/88
[2017-11-28] MEDS ORDERED: ALLOPURINOL 300 MG TABLET PO SCH (09:00)
[2017-11-28] MEDS ORDERED: LOSARTAN POTASSIUM 50 MG TABLET PO SCH (09:00)
[2017-11-28] MEDS ORDERED: ASPIRIN 81 MG TAB.CHEW PO SCH (09:00)
[2017-11-28] MEDS ORDERED: CARVEDILOL 3.125 MG TABLET PO SCH (09:00)
[2017-11-28] MEDS ORDERED: CLONIDINE HCL 0.1 MG TABLET PO SCH (09:00)
[2017-11-28] MEDS ORDERED: CHOLECALCIFEROL 1,000 UNIT TABLET PO SCH (09:00)
[2017-11-28 11:42] VITALS: BP 178/94
[2017-11-28] MEDS ORDERED: hydrALAZINE HCL 50 MG TABLET PO SCH (14:00)
[2017-11-28] MEDS ORDERED: METFORMIN HCL 500 MG TABLET PO SCH (18:00)
[2017-11-28] MEDS ORDERED: TAMSULOSIN HCL 0.4 MG CAP.SR.24H PO SCH (21:00)
[2017-11-28] MEDS ORDERED: ATORVASTATIN 40 MG TABLET PO SCH (21:00)
== END 2017-11-28 12:12 | disposition home or self-care (01) | DRG 304 ==
LOC: ER 02:08 → TELE 04:34
PROVIDERS: ADMIT Hospitalist; ATTEND Nurse Practitioner Acute Care
DX: I16.0 Hypertensive urgency (principal); N17.0 Acute kidney failure with tubular necrosis; I11.9 Hypertensive heart disease without heart failure; E66.9 Obesity, unspecified; Z68.27 Body mass index [BMI] 27.0-27.9, adult; I25.10 Atherosclerotic heart disease of native coronary artery without angina pectoris; E78.5 Hyperlipidemia, unspecified; Z95.5 Presence of coronary angioplasty implant and graft; E11.9 Type 2 diabetes mellitus without complications; Z79.84 Long term (current) use of oral hypoglycemic drugs; M10.9 Gout, unspecified; Z79.899 Other long term (current) drug therapy; I25.2 Old myocardial infarction; N28.89 Other specified disorders of kidney and ureter; N40.0 Benign prostatic hyperplasia without lower urinary tract symptoms
CPT/HCPCS: 36415; 70030-TC; 71045; 85025; 85730; 93005; A4663

== ENCOUNTER 2017-12-02 20:20 | Emergency (ER) | payer MEDICARE, BC, MEDICAID ==
[~2017-12-02] VITALS: Ht 170.2 cm; Wt 86.2 kg
[~2017-12-02 20:20] MED LIST changes: -Acetaminophen PO; +HYDR100T27 PO; -HYDR50TA68 PO; +LOSA50TA21 PO; -LOSA50TA3 PO
--- NOTE | 2017-12-02 20:45 | NUR ---
PT DECIDED NOT TO BE SEEN BY PHYSICIAN YOAN
== END 2017-12-02 20:48 | disposition left against medical advice (07) ==
LOC: ER 20:24
DX: Z53.21 Procedure and treatment not carried out due to patient leaving prior to being seen by health care provider (principal)
CPT/HCPCS: A4663

== ENCOUNTER 2017-12-07 21:10 | Emergency (ER) | payer MEDICARE, BC, MEDICAID ==
[~2017-12-07] VITALS: Ht 170.2 cm; Wt 86.2 kg
--- NOTE | 2017-12-08 00:04 | NUR ---
DR LOGAN RICHARDS MD AT BEDSIDE FOR MSE.
--- NOTE | 2017-12-08 00:28 | NUR ---
Patient discharged to home in stable conditon accompanied by . Written and verbal after care instructions given. Patient verbalizes understanding of instructions. no distress noted. pt took all personal belongings.
[2017-12-08 00:33] VITALS: BP 121/73
== END 2017-12-08 00:34 | disposition home or self-care (01) ==
LOC: ER 21:12
DX: I10 Essential (primary) hypertension (principal); I25.10 Atherosclerotic heart disease of native coronary artery without angina pectoris; I25.2 Old myocardial infarction; E11.9 Type 2 diabetes mellitus without complications; E78.5 Hyperlipidemia, unspecified; Z88.2 Allergy status to sulfonamides; Z95.1 Presence of aortocoronary bypass graft; Z95.5 Presence of coronary angioplasty implant and graft
CPT/HCPCS: A4663

== ENCOUNTER 2018-03-17 19:57 | Emergency (ER) | payer MEDICARE, BC, MEDICAID ==
[~2018-03-17] VITALS: Ht 167.6 cm; Wt 87.5 kg
--- NOTE | 2018-03-17 20:29 | NUR ---
PT A/OX4, ABLE TO FOLLOW COMMANDS. PT C/O LEFT UPPER BACK PAIN THAT STARTED APPROXIMATELY 2-3 DAYS, NO PROVOKING FACTOR, DULL PAIN, RADIATES DOWN THE LEFT ARM, 7/10, CONSTANT. PT DENIES INJURY, NO PHYSICAL ACTIVITY AT THE TIME OF PAIN ONSET. NO DEFORMITY OBSERVED. PT DENIES C/P, SOB, N/V/D, DIZZINESS, HEADACHE. ER MD AT BEDSIDE FOR MSE.
--- NOTE | 2018-03-17 20:39 | NUR ---
ENTRY LEVEL BUYER AT BEDSIDE.
--- NOTE | 2018-03-17 20:57 | NUR ---
Patient discharged to home in stable conditon. Written and verbal after care instructions given. Patient verbalizes understanding of instructions. PT SELF-AMBULATED W/O DIFFICULTY. ALL BELONGINGS W/ PT.
[2018-03-17 20:58] VITALS: BP 144/76
== END 2018-03-17 20:58 | disposition home or self-care (01) ==
LOC: ER 20:00
DX: R07.89 Other chest pain (principal); I10 Essential (primary) hypertension; I25.10 Atherosclerotic heart disease of native coronary artery without angina pectoris; I25.2 Old myocardial infarction; E11.9 Type 2 diabetes mellitus without complications; E78.5 Hyperlipidemia, unspecified; Z88.2 Allergy status to sulfonamides; Z79.82 Long term (current) use of aspirin; Z79.899 Other long term (current) drug therapy
CPT/HCPCS: 71045; 93005; A4663